=== PATIENT | female | born 1980 | race American Indian/Alaskan Native ===

== ENCOUNTER 2018-01-01 04:42 | Outpatient (CLI) | payer OTHER ==
[2018-01-01] MEDS ORDERED: LACTATED RINGERS ONE (06:00)
[2018-01-01] MEDS ORDERED: LACTATED RINGERS 1,000 ML IV ONE (06:04)
[2018-01-01 06:42] VITALS: BP 117/80
--- NOTE | 2018-01-01 06:47 | Ultrasound Report ---
FINAL REPORT EXAM: US OB LIMITED HISTORY: ASHLEY c/o leaking Fluid COMPARISONS: None. FINDINGS: Limited grayscale, color and M-mode 3rd trimester pelvic ultrasound Single living intrauterine with recorded cardiac activity of 141 beats per minute. Amniotic fluid volume is subjectively normal and amniotic fluid index measures around 17 cm. Presentation is cephalic. The cervix and placenta are not well visualized on this examination. IMPRESSION: Subjectively normal amniotic fluid volume and normal amniotic fluid index of 17 cm. The cervix and placenta are not well visualized on this exam. Single living intrauterine in cephalic presentation.
== END 2018-01-01 06:43 | disposition home or self-care (01) ==
LOC: TRG 04:42
PROVIDERS: ATTEND Obstetrics & Gynecology
DX: O47.03 False labor before 37 completed weeks of gestation, third trimester (principal); Z3A.35 35 weeks gestation of pregnancy
CPT/HCPCS: 59025; 76815; 96360; J7120

== ENCOUNTER 2018-01-14 14:44 | Inpatient (IN) | payer OTHER ==
[2018-01-14] MEDS ORDERED: XYLOCAINE 2% INFILTRATI ONE (15:02)
[2018-01-14] MEDS ORDERED: BRETHINE SUB-Q PRN (15:02)
[2018-01-14] MEDS ORDERED: ePHEDrine SULFATE IV PRN (15:02)
[2018-01-14] MEDS ORDERED: MINERAL OIL PO PRN (15:02)
[2018-01-14] MEDS ORDERED: BRETHINE IVP PRN (15:02)
[2018-01-14] MEDS ORDERED: STADOL IV PRN (15:02)
[2018-01-14] MEDS ORDERED: PITOCin/NS 30 UNIT/500ML 30 UNITS/500 ML BAG IV SCH (16:00)
[2018-01-14] MEDS ORDERED: PITOCin/NS 20 UNIT/1000ML DRIP 20 UNITS/1,000 ML BAG IV SCH (16:00)
[2018-01-14 16:55] LABS: Hematocrit 36.9 % (30.3-42.9); Hemoglobin 11.9 gm/dl (10.1-14.3); Mean Corpuscular HGB Conc 32 % (30-34); Mean Corpuscular Hemoglobin 31 pg (28-32); Mean Corpuscular Volume 97 fl (79-97); Platelet Count 342 K/mm3 (140-440); Red Cell Distribution Width 14.5 % (13.2-15.2)
--- NOTE | 2018-01-14 17:50 | History and Physical Report ---
History of Present Illness Date of examination: 01/14/18 Date of admission: 01/14/18 14:44 Chief complaint: My water broke History of present illness: patient is a 37 year old who presented to office today as was found to have ruptured membranes. Patient has had an uncomplicated course. She is GBS negative Past History Past Medical History: no pertinent history Past Surgical History: no surgical history Family/Genetic History: none Social history: - Obstetrical History Expected Date of Delivery: 01/30/18 Actual Gestation: 37 Week(s) 5 Day(s) : 1 Medications and Allergies Allergies Allergy/AdvReac Type Severity Reaction Status Date / Time No Known Allergies Allergy Verified 01/14/18 15:18 Home Medications Medication Instructions Recorded Confirmed Last Taken Type Iron 1 tab PO QDAY 01/01/18 01/01/18 12/31/17 10:00 History Prena1 Chew Tablet 1 tab PO QDAY 01/01/18 01/01/18 12/31/17 10:00 History Active Meds: Active Medications Butorphanol Tartrate (Stadol) 2 mg IV Q2H PRN PRN Reason: Pain , Severe (7-10) Ephedrine Sulfate (Ephedrine Sulfate) 10 mg IV Q2M PRN PRN Reason: Hypotension Fentanyl (Sublimaze) 100 mcg IV Q2H PRN PRN Reason: Labor Pain Lactated Ringer's (Lactated Ringers) 1,000 mls @ 125 mls/hr IV DIRECT LANCE Oxytocin/Sodium Chloride (Pitocin/Ns 20 Unit/1000ml Drip) 20 units in 1,000 mls @ 125 mls/hr IV DIRECT LANCE Oxytocin/Sodium Chloride (Pitocin/Ns 30 Unit/500ml) 30 units in 500 mls @ 2 mls /hr IV DIRECT LANCE; Protocol Mineral Oil (Mineral Oil) 30 ml PO QHS PRN PRN Reason: Constipation Terbutaline Sulfate (Brethine) 0.25 mg SUB-Q ONCE PRN PRN Reason: Hyperstimulation/Hypertonicity Terbutaline Sulfate (Brethine) 0.25 mg IVP ONCE PRN PRN Reason: Hyperstimulation/Hypertonicity Review of Systems All systems: negative Constitutional: weight gain Gastrointestinal: abdominal pain Genitourinary: leakage of fluid - Vital Signs Vital signs: Vital Signs Temp Pulse Resp BP Pulse Ox 98.6 F 89 20 124/80 97 01/14/18 15:21 01/14/18 15:21 01/14/18 15:21 01/14/18 15:21 01/14/18 15:21 Temp Pulse Resp BP Pulse Ox 98.6 F 89 20 124/80 99 01/14/18 15:21 01/14/18 17:43 01/14/18 15:21 01/14/18 15:26 01/14/18 17:43 - Physical Exam Breasts: Cardiovascular: Regular rate, Normal S1, Normal S2 Lungs: Positive: Clear to auscultation, Normal air movement Abdomen: Positive: normal appearance, soft, normal bowel sounds. Negative: distention, tenderness Vulva: both: normal Vagina: Positive: normal moisture. Negative: discharge Cervix: Negative: lesion, discharge Uterus: Positive: normal size, normal contour Adnexa: both: normal Anus/Rectum: Positive: normal perianal skin, heme negative. Negative: rectal mass, hemorrhoids Extremities: Deep Tendon Reflex Grade: Normal +2 - Obstetrical Cervical Dilatation: 1.5 Cervical Effacement Percentage: 50 station: -2 Uterine Contraction Pattern: Absent Results Result Diagrams: 01/14/18 16:00 All other labs normal. Assessment and Plan Iup at 37.5 weeks with prom. Admit to L&D for augmentation of labor. Will start pitocin for induction of labor. Anticipate .
[2018-01-15] MEDS: LACTATED RINGERS 1,000 ML IV SCH ×3 (01:00→17:36)
[2018-01-15] MEDS ORDERED: POLYCILLIN/NS 2 GM/100 ML 2 GM/100 ML BAG IV SCH (08:00)
--- NOTE | 2018-01-15 10:27 | Event Note ---
Date: 01/15/18 Pt now reveals that she feels her water broke at work on . Pt had not revealed this previously. Ampicillin started for prolonged rupture of membranes. SVE: /3. FHTs: Category II tracing. Continue pitocin augmentation and routine intrapartum care. Monitor for signs of chorioamnionitis.
[2018-01-15] MEDS: SUBLIMAZE IV PRN (12:10)
--- NOTE | 2018-01-15 12:23 | Event Note ---
Date: 01/15/18 Pt without complaints. FHTs Category II. SVE: /-3. Attempt to rupture forbeag unsuccessful secondary to pt discomfort and very posterior cervix. Continue routine intrapartum care.
[2018-01-15] MEDS: AMPICILLIN/NS 1 GM/50 ML 1 GM/50 ML BAG IV SCH ×3 (12:26→22:19)
[2018-01-15] MEDS ORDERED: CYTOTEC VG ONE ×2 (17:00→22:04)
--- NOTE | 2018-01-15 22:07 | Event Note ---
Date: 01/15/[address] Late Entry. Primary OB Dr Hollingsworth contacted regarding the patient's initial examination in the office. She reports that the patient had a speculum exam with pooling of fluid in the vagina consistent with rupture of membranes. Pt with very little leakage since admission so I suspect a high leak. Continue routine intrapartum care and close maternal and monitoring.
[2018-01-16] MEDS: AMPICILLIN/NS 1 GM/50 ML 1 GM/50 ML BAG IV SCH (01:53)
[2018-01-16] MEDS: LACTATED RINGERS 1,000 ML IV SCH ×2 (01:58→06:02)
[2018-01-16] MEDS: SUBLIMAZE IV PRN (02:02)
[2018-01-16] MEDS ORDERED: BICITRA PO ONE (06:03)
[2018-01-16] MEDS ORDERED: REGLAN IV ONE (06:03)
[2018-01-16] MEDS ORDERED: PEPCID IV ONE (06:03)
--- NOTE | 2018-01-16 06:03 | Event Note ---
Date: 01/16/18 Pt with minimal cervical blade changer multiple days of induction with multiple agents. Plan to proceed with primary section.
[2018-01-16 06:40] LABS: Basophils # (Auto) 0.1 K/mm3 (0.0-0.1); Basophils % (Auto) 0.5 % (0.0-1.8); Eosinophils % (Auto) 0.2 % (0.0-4.3); Hematocrit 35.2 % (30.3-42.9); Lymphocytes # (Auto) 1.2 K/mm3 (1.2-5.4); Lymphocytes % (Auto) 9.1 % (13.4-35.0); Mean Corpuscular HGB Conc 34 % (30-34); Mean Corpuscular Hemoglobin 32 pg (28-32); Mean Corpuscular Volume 94 fl (79-97); Monocytes # (Auto) 1.2 K/mm3 (0.0-0.8); Monocytes % (Auto) 8.9 % (0.0-7.3); Platelet Count 336 K/mm3 (140-440); Red Blood Count 3.73 M/mm3 (3.65-5.03)
[2018-01-16] MEDS ORDERED: PITOCin/NS 20 UNIT/1000ML DRIP 20 UNITS/1,000 ML BAG IV SCH ×2 (07:00→11:11)
[2018-01-16] MEDS ORDERED: LACTATED RINGERS 1,000 ML IV SCH (07:00)
[2018-01-16] MEDS ORDERED: ANCEF/STERILE WATER 2 GM/20 ML 2 GM/20 ML SYRINGE IV NR (07:00)
[2018-01-16] MEDS ORDERED: MORPHINE ONE (07:46)
[2018-01-16] MEDS ORDERED: WATER FOR IRRIG STERILE IR ONE (08:00)
[2018-01-16] MEDS ORDERED: NACL 0.9% IR ONE (08:00)
[2018-01-16] MEDS ORDERED: METHERGINE IM ONE (08:14)
[2018-01-16] MEDS ORDERED: TORADOL ONE (08:17)
--- NOTE | 2018-01-16 09:39 | Anesthesia Consultation ---
Anesthesia Consult and Med Hx Date of service: 01/16/18 - Airway Anesthetic Teeth Evaluation: Good ROM Head & Neck: Adequate Mental/Hyoid Distance: Adequate Mallampati Class: Class II Intubation Access Assessment: Good - Pulmonary Exam CTA: Yes - Cardiac Exam Cardiac Exam: No Murmur - Pre-Operative Health Status ASA Pre-Surgery Classification: ASA2 Proposed Anesthetic Plan: Spinal - Pulmonary Hx Asthma: No COPD: No Hx Pneumonia: No - Cardiovascular System Hx Hypertension: Yes (not elevated with now) - Central Nervous System Hx Seizures: No Hx Psychiatric Problems: No - Endocrine Hx Renal Disease: No Hx End Stage Renal Disease: No Hx Hypothyroidism: No Hx Hyperthyroidism: No - Hematic Hx Anemia: Yes Hx Sickle Cell Disease: No - Other Systems Hx Alcohol Use: No
[2018-01-16] MEDS ORDERED: PHENERGAN PO PRN (09:40)
[2018-01-16] MEDS ORDERED: NARCAN 0.4 MG/1 ML IV PRN ×2 (09:40→11:11)
[2018-01-16] MEDS ORDERED: PHENERGAN PR PRN (09:40)
[2018-01-16] MEDS ORDERED: ZOFRAN IV PRN ×2 (09:40→11:11)
[2018-01-16] MEDS ORDERED: DILAUDID IV PRN (09:40)
--- NOTE | 2018-01-16 09:40 | Post Anesthesia Evaluation ---
- Post Anesthesia Evaluation Patient Participated: Yes Airway Patent: Yes Stable Respiratory Function: Yes Nausea/Vomiting: No Temp > 96.8F: Yes Pain Manageable: Yes Adequeate Hydration: Yes Anesthesia Complications: No Block Receding Appropriately: Yes
--- NOTE | 2018-01-16 09:59 | Procedure Note ---
OB Delivery Note - Delivery Date of Delivery: 01/16/18 Surgeon: MONALISA FLOWER Estimated blood loss: 1000cc - Section Preop diagnosis: arrest of dilation Postop diagnosis: same section procedure: section, primary low transverse Disposition: PACU Complications: uterine atony Narrative: Please see operative note. - A at 1 minute: 8 at 5 minutes: 9 Gender: Male (3324g (7lb 5.2 oz) @ 0818 am)
[2018-01-16] MEDS ORDERED: fentaNYL-BUPIV 2 MCG/ML-0.125% 200 MCG/100 ML BAG EPIDURAL SCH (10:00)
[2018-01-16] MEDS ORDERED: SODIUM CHLORIDE FLUSH SYRINGE 10 ML IV NR ×2 (10:00→11:11)
--- NOTE | 2018-01-16 10:00 | Operative Report ---
Operative Report Operative Report: Date of procedure: January 16, 2018 Preoperative diagnosis: 1) IUP at 38w0d 2) Arrest of Dilation 3) Failed Induction of Labor 4) Prolonged Rupture of Membranes 5) Premature Rupture of Membranes 6) Advanced Maternal Age Postoperative diagnosis: Same 6) Cephalopelvic Disproportion Procedure: Primary low transverse section Surgeon: Laura Gillespie M.D. Anesthesia: Spinal Findings: 1) Viable male , Apgars 8 and 9, weight 3324g, (7 lb 5.2 oz) in vertex presentation 2) Normal-appearing uterus ovaries and tubes Estimated blood loss: 1000 mL Urine: Clear at the end of the procedure Drains: Grider to gravity Specimens: Placenta to pathology Complications: Uterine atony treated with Methergine and an additional 20 units of pitocin in the IV fluids Disposition: Stable to PACU Indication for procedure: The patient is a 37-year-old primigravida initially admitted at 37 weeks 5 days secondary to rupture of membranes. Over the next 2 days the patient received Pitocin as well as multiple doses of Cytotec with no cervical change beyond 3 cm. The decision was made to proceed with primary section. Operation in detail: After the risks, benefits, alternatives and complications were explained to the patient she gave informed consent for the procedure. She was subsequently taken to the operating room where spinal anesthesia was noted to be adequate. She was subsequently placed in the dorsal supine position with leftward tilt and prepped and draped in a normal sterile fashion. heart tones were noted to be in the and 125s prior to incision. A timeout was performed. A Pfannenstiel skin incision was made with the knife and carried down to the layer of the fascia with the Bovie. The fascia was incised in the midline and the fascial incision was extended bilaterally with the Bovie. Attention was then turned to the superior aspect of the incision which was grasped with two Kochers, tented up, and dissected off the rectus muscles. Attention was then turned to the inferior aspect of the incision which was grasped with two Kochers , tented up and dissected off the rectus muscles. The rectus muscles were then in the midline. The peritoneum was then entered bluntly. The peritoneal incision was extended with good visualization of the bladder. The peritoneal incision was then stretched. An Babak self-retaining retractor was placed for visualization. The bladder blade was placed. The vesicouterine peritoneum was grasped with smooth pickups and incised with Metzenbaum scissors. Metzenbaum scissors were used to extend the incision bilaterally. The bladder flap was then created digitally and the bladder blade was replaced. A transverse incision was made in the lower uterine segment with immediate heavy bleeding from the hysterotomy. Richards clamps were used to to bleeding vessels. The incision was extended bilaterally with the bandage scissors. The head was delivered without difficulty followed by shoulders and body. was bulb suctioned at delivery. The cord was clamped and cut and the was handed to NICU staff in attendance. Cord blood was collected. The placenta was then delivered manually. The uterus was then exteriorized and cleared of all clots and debris. At this time the uterus noted to be atonic. The patient received Methergine 0.2 mg IM as well as an additional 20 units of Pitocin in IV fluid with good uterine response. The hysterotomy was then reapproximated with 0 Vicryl in a running locked fashion. A second layer of the same suture was used in imbricating fashion. Additional [id number] sutures of 2-0 Vicryl were used across the hysterotomy to obtain hemostasis. The hysterotomy was inspected and hemostasis was noted. The Babak self-retaining retractor was removed. The gutters were irrigated and cleared of all clots and debris. The hysterotomy was again inspected and noted to be hemostatic. Surgicel was placed over the hysterotomy. The peritoneum was reapproximated with 2-0 Vicryl in a running fashion incorporating the rectus muscles. Surgicel was placed over the rectus muscles. The fascia was reapproximated with 0 Vicryl in a running fashion. Subcutaneous tissue was reapproximated with 3-0 Vicryl in a running fashion. The skin was reapproximated with 4-0 Vicryl in a subcuticular fashion. The incision was then covered with steri strips and a pressure dressing. The procedure was then ended. The patient tolerated the procedure well and was taken to the PACU in stable condition. All instrument, lap, and needle counts were correct 3.
[2018-01-16] MEDS: DILAUDID IV PRN ×2 (10:02→10:10)
[2018-01-16] MEDS ORDERED: MYLICON PO PRN (11:11)
[2018-01-16] MEDS ORDERED: TUCKS PAD TP PRN (11:11)
[2018-01-16] MEDS ORDERED: ANCEF/NS 1 GM/50 ML 1 GM/50 ML BAG IV SCH (11:11)
[2018-01-16] MEDS ORDERED: TORADOL IV PRN (11:11)
[2018-01-16] MEDS ORDERED: LANSINOH TP PRN (11:11)
[2018-01-16] MEDS ORDERED: D5LR 1,000 ML IV SCH (11:11)
[2018-01-16] MEDS ORDERED: MILK OF MAGNESIA PO PRN (11:11)
[2018-01-16] MEDS ORDERED: ceFAZolin 1 GM in NACL 0.9% 20 ML IV SCH (14:00)
[2018-01-16 15:18] LABS: Hematocrit 28.2 % (30.3-42.9)
[2018-01-17 00:06] LABS: Hematocrit 22.2 % (30.3-42.9); Hemoglobin 7.2 gm/dl (10.1-14.3)
[2018-01-17] MEDS ORDERED: BOOSTRIX IM ONE (10:11)
[2018-01-17] MEDS ORDERED: M-M-R II VACCINE SUB-Q ONE (10:11)
[2018-01-17] MEDS: MOTRIN PO PRN (13:48)
[2018-01-17] MEDS: FEOSOL PO SCH (13:49)
--- NOTE | 2018-01-17 14:25 | Progress Note ---
Assessment and Plan POD 1 s/p ltcs. Doing well. Infant is in NICU for antibiotics. WIll continue routine care. Plan for discharge on Wednesday Subjective - Subjective Date of service: 01/17/18 Interval history: patient is a 37 year old who presented to office today as was found to have ruptured membranes. Patient has had an uncomplicated course. She is GBS negative Patient reports: appetite normal, voiding normally, ambulating normally : in NICU Objective - Vital Signs Latest vital signs: Vital Signs Temp Pulse Resp BP BP Pulse Ox 01/17/18 08:30 98.3 F 92 H 18 135/81 01/17/18 00:30 98.6 F 71 16 114/67 01/16/18 20:00 98.7 F 103 H 18 142/87 01/16/18 15:56 97.8 F 84 20 115/76 95 Intake and Output 01/16/18 01/17/18 01/17/18 22:59 06:59 14:59 Intake Total 300 360 Output Total 600 1000 300 Balance -600 -700 60 Intake: Oral 360 Intake, Free Water 300 Output: Urine 600 1000 300 Indwelling Catheter 600 Void 1000 300 Other: Total, Intake Amount 360 Total, Output Amount 600 400 300 # Voids Void 1 - Exam Cardiovascular: Present: Regular rate, Normal S1, Normal S2 Lungs: Present: Clear to auscultation, Normal air movement Abdomen: Present: normal appearance, soft Vulva: both: normal Uterus: Present: normal Extremities: Present: normal Deep Tendon Reflex Grade: Normal +2 Incision: Present: normal - Labs Labs: Abnormal lab results 01/16/18 01/16/18 Range/Units 14:49 23:36 Hgb 9.0 L D 7.2 L (10.1-14.3) gm/dl Hct 28.2 L D 22.2 L D (30.3-42.9) %
--- NOTE | 2018-01-17 14:27 | Ultrasound Report ---
FINAL REPORT PROCEDURE: US OB LIMITED TECHNIQUE: Real-time transabdominal sonography in multiple planes of pelvis for a focused or limited evaluation was performed with image documentation. CPT 33240 HISTORY: Rupture of membranes, ASHLEY COMPARISON: No prior studies are available for comparison. FINDINGS: There is a single living intrauterine gestation currently in the vertex presentation with heart rate of 156 beats per minute. Placenta is located anterior and is grade 1. No abruption visualized. The internal cervical os was not visualized. Subjectively the amount of amniotic fluid appears low normal to mildly decreased. The amniotic fluid index is low normal 7.4 centimeters with the normal range being 7-24 centimeters. Further evaluation was neither requested nor performed. IMPRESSION: Borderline oligohydramnios. Follow-up exam suggested. Single living intrauterine gestation currently visualize vertex presentation. Further evaluation was neither requested nor performed.
--- NOTE | 2018-01-17 15:30 | Query-Anemia ---
Deaallison Schaefer Jose Miguel Date:__01/17/2018 Anchorman/CDS:____benito Phone#:___[phone] Exercise your independent professional judgment when responding to this query. Questions asked do not imply a particular answer is desired or expected. We greatly appreciate your clarification on this issue. Clinical Documentation States: patient is a 37 year old who presented to office today as was found to have ruptured membranes. Patient has had an uncomplicated course. She is GBS negative.Taken from [facility] H&P note(Darrick Silva) on 01/14/18. Taken from operative report (Laura Zarate) on 01/16/18. Preoperative diagnosis: 1) IUP at 38w0d 2) Arrest of Dilation 3) Failed Induction of Labor 4) Prolonged Rupture of Membranes 5) Premature Rupture of Membranes 6) Advanced Maternal Age Postoperative diagnosis: Same 6) Cephalopelvic Disproportion Procedure: Primary low transverse section Estimated blood loss: 1000 mL Clinical Findings Show: Date/Time 01/14/18 01/16/18(06:17) 01/16/18 (14:49) 01/16/18(23:36) HB 11.9 12.0 9.0 7.2 HCT 36.9 35.2 28.2 22.2 Etiology: [X ] Anemia due to acute blood loss [ ] Anemia due to chronic blood loss [ ] Anemia secondary to ESRD [ ] Anemia secondary to neoplastic disease [ ] Iron deficiency anemia due to malabsorption [ ] GI Bleed from: [ ] Anemia of chronic disease ,Other: [X ] Precipitous Drop in Hemoglobin [X ] Precipitous Drop in Hematocrit [ ] Other: [ ] Unable to determine [ ] Comment/Explanation: Present on Admission: [ ] Yes (Y) [ ] Clinically undeterminable (W) [X ] No (N) Please also document response in your Progress Notes and/or Discharge Summary and indicate if the condition was present on admission. MTDD
[2018-01-17] MEDS: PERCOCET 5/325 PO PRN (20:16)
[2018-01-18] MEDS: PERCOCET 5/325 PO PRN ×3 (05:54→21:42)
[2018-01-18] MEDS: FEOSOL PO SCH (12:49)
[2018-01-19] MEDS: PERCOCET 5/325 PO PRN (04:12)
--- NOTE | 2018-01-19 10:57 | Progress Note ---
Assessment and Plan POD 3 s/p ltcs. Doing well except for no evidence of bowel movement and mild distention. Patient has tried to have a bowel movement but has been unable to since last week. Patient has possible ileus at this time. Will encourage ambulation add mag citrate to help complete bowel movement. Continue inpatient care. Plan for potential discharge on tomorrow. Subjective - Subjective Date of service: 01/19/18 Interval history: patient is a 37 year old who presented to office today as was found to have ruptured membranes. Patient has had an uncomplicated course. She is GBS negative Patient reports: appetite normal, voiding normally, pain well controlled, ambulating normally, other (no bowel movement) : in NICU Objective - Vital Signs Latest vital signs: Vital Signs Temp Pulse Resp BP BP Pulse Ox 01/19/18 07:38 98.8 F 100 H 136/80 98 01/19/18 04:12 20 01/19/18 04:10 98.4 F 76 18 116/73 01/18/18 21:42 20 01/18/18 16:00 98.7 F 87 18 110/70 99 Intake and Output 01/18/18 01/19/18 01/19/18 22:59 06:59 14:59 Intake Total 480 Balance 480 Intake: Oral 480 Other: Total, Intake Amount 480 # Voids Indwelling Catheter 2 - Exam Cardiovascular: Present: Regular rate, Normal S1, Normal S2 Lungs: Present: Clear to auscultation, Normal air movement Abdomen: Present: normal appearance, distention (firm, decreased bowel sounds), normal bowel sounds Uterus: Present: normal, fundal height below umbilicus Extremities: Present: edema (2 plus pedal edema bilaterally) Incision: Present: normal, dry, intact
[2018-01-19] MEDS ORDERED: CITRATE OF MAGNESIA PO ONE (14:00)
[2018-01-19] MEDS: MOTRIN PO PRN (22:28)
[2018-01-20] MEDS: PERCOCET 5/325 PO PRN ×2 (04:14→10:20)
[2018-01-20] MEDS: FEOSOL PO SCH (10:20)
--- NOTE | 2018-01-20 16:05 | Progress Note ---
Assessment and Plan POD 4 s/p primary ltcs. Patient doing well. patient had bowel movement yesterday and is now passing good flatus. Abdominal distention is now resolved. Plan for discharge on today. Subjective - Subjective Date of service: 01/20/18 Interval history: patient is a 37 year old who presented to office today as was found to have ruptured membranes. Patient has had an uncomplicated course. She is GBS negative Patient reports: appetite normal, voiding normally, pain well controlled, bowel movement, ambulating normally Mary D: in NICU Objective - Vital Signs Latest vital signs: Vital Signs Temp Pulse Resp BP Pulse Ox 01/20/18 10:20 20 01/20/18 08:26 98.1 F 83 20 135/85 98 01/20/18 00:59 98.2 F 87 20 123/72 Intake and Output 01/20/18 01/20/18 01/20/18 06:59 14:59 22:59 Intake Total 360 120 Balance 360 120 Intake: Oral 120 Intake, Free Water 360 Other: Total, Intake Amount 120 # Voids Void 2 - Exam Breasts: Present: deferred Cardiovascular: Present: Regular rate, Normal S1, Normal S2 Lungs: Present: Clear to auscultation, Normal air movement Abdomen: Present: normal appearance, soft, normal bowel sounds Uterus: Present: normal, fundal height below umbilicus Deep Tendon Reflex Grade: Normal +2
--- NOTE | 2018-01-20 16:07 | Discharge Summary ---
Providers - Providers Date of Admission: 01/14/18 14:44 Date of discharge: 01/20/18 Attending physician: CAMPOS GAN 01/16/18 11:11 Consult to [employer] [CONS] Routine Reason For Exam: Primary care physician: CAMPOS GAN Hospitalization Reason for admission: induction of labor, rupture of membranes (prolonged) Delivery: Procedure: primary low transverse Incision: normal, dry, intact Discharge diagnosis: IUP at term delivered baby: male Hospital course: Post hemorrhage with subsequent anemia, Abdominal distension due to post op ileus Condition at discharge: Good Disposition: DC-01 TO HOME OR SELFCARE Plan - Discharge Medications Prescriptions: Ferrous Fumarate/Docusate(Nf) [Ashley-Sequels 106/50 mg tab] 1 each PO BID #60 tablet.er Ibuprofen [Motrin] 800 mg PO Q8HR PRN #40 tablet PRN Reason: Pain Oxycodone HCl/Acetaminophen [Percocet 7.5/325 mg] 1 each PO Q6HR PRN #50 tablet PRN Reason: Pain - Provider Discharge Summary Activity: routine, no sex for 6 weeks, no heavy lifting 4 weeks, no strenuous exercise Diet: routine Instructions: routine Additional instructions: [] Smoking cessation referral if applicable(refer to patient education folder for contact #) [] Refer to [facility]'s [facility] Booklet Call your doctor immediately for: * Fever > 100.5 * Heavy vaginal bleeding ( >1 pad per hour) * Severe persistent headache * Shortness of breath * Reddened, hot, painful area to leg or breast * Drainage or odor from incision. * Keep incision clean and dry at all times and follow doctor's instructions regarding bathing/showering - Follow up plan Follow up: CAMPOS GAN MD [Primary Care Provider] - 14 Days
[2018-01-20] MEDS: MOTRIN PO PRN (16:35)
[2018-01-20 17:52] VITALS: BP 117/69
== END 2018-01-20 17:50 | disposition home or self-care (01) | DRG 765 ==
LOC: LD 14:44 → OB 01-16 11:27
PROVIDERS: ADMIT Obstetrics & Gynecology; ATTEND Obstetrics & Gynecology
PROC: 10D00Z1 Extraction of Products of Conception, Low, Open Approach (ICD-10-PCS; principal; 2018-01-14)
DX: O42.92 Full-term premature rupture of membranes, unspecified as to length of time between rupture and onset of labor (principal); D62 Acute posthemorrhagic anemia; K56.7 Ileus, unspecified; Z3A.37 37 weeks gestation of pregnancy; Z37.0 Single live birth; O62.0 Primary inadequate contractions; O61.9 Failed induction of labor, unspecified; O33.9 Maternal care for disproportion, unspecified; O99.02 Anemia complicating childbirth; O75.4 Other complications of obstetric surgery and procedures
CPT/HCPCS: 36415; 76815; 85014; 85018; 85025; 85027; 86592; 86850; 86900; 86901; 88307; 99211; G0463; J0290; J0690; J1170; J1885; J2210; J2270; J2405; J2590; J2765; J3010; J7120; J7121